=== PATIENT | male | born 1940 | race Caucasian/White ===

== ENCOUNTER → 2016-08-09 | Outpatient (CLI) | payer MEDICARE, OTHER ==
[~2016-08-09] MED LIST: ACETAMINOPHEN325 MG PO; ADVAIR 100-501 EAC1; ALBUTEROL17 GM INH; ALBUTEROL20 ml; BACTRIM DS TABL1 TA1 PO; BENZONATATE; CEPHALEXIN500 M1 PO; COMBIVENT MININEB INH; COMBIVENT RESPIM4 GM; DELTASONE20 MG; DEXAMETHASONE4 M1 PO; FLOVENT DI50 MCG/DIS INH; FOLIC ACID1 MG PO; GUAIFENESIN400 M1; HYDROXYZINE HCL25 M1 PO; LEVAQUIN; LEVAQUIN PO; LEVAQUIN750 MG PO; MEDROL PO; METOPROLOL SUCC25 MG PO; METOPROLOL SUCC50 MG PO; NO MEDICATIONS; OXYCODONE HCL5 M1 PO; ROBAXIN500 MG; TUSSIONEX PENN473 ML PO; VICODIN 5/500 T1 TAB PO; VOLTAREN75 MG PO; XARELTO20 MG PO; ZOFRAN PO
--- NOTE | ~2016-08-09 | CR63 ---
[facility] A Service of [facility] & [facility] RADIOLOGY TEXT RESULTS PATIENT: DARREN MOREL LOCATION: [facility] : 40 UNIT #: [id number] AGE: [address]: Antonina Geiger APRN SEX: M ORDER DR: [id number] [facility] [address] [place], [place] [address] [id number] O MR#: [id number] Acc #: [id number] NAME: DARREN MOREL : 1940 SEX: M STUDY DATE/TIME: 08/09/2016 12:37 UNIT: [facility] ROOM: STUDY DESCRIPTION: CR Chest 2 View Attending Physician: Antonina Geiger A.P.R.N. Referring Physician: Antonina Geiger A.P.R.N. Ordering Physician: Antonina Geiger A.P.R.N. Primary Care Physician: Hernán Vazquez M.D. MEDICAL IMAGING REPORT This report is preliminary unless electronic signature is present EXAM Chest 2 views, 08/09/2016 12:37 hours HISTORY 75-year-old man with shortness of air, cough and congestion, history of right lung cancer for followup. Symptoms are chronic. COMPARISON 08/06/2016 FINDINGS 2 PA views and a lateral view demonstrates stable right chest tube with tip overlying the posterior right fourth rib which is slightly inferior to its position previously. The postop changes on the right are stable. There is an apical pneumothorax which is felt slightly smaller than on the prior exam. Left lung is hyperinflated but clear. IMPRESSION 1. A right chest tube projects slightly more inferiorly than it did previously overlying the inferior aspect of the right posterior fourth rib previously extending to the inferior aspect of the right third rib. The right apical pneumothorax is slightly smaller. 2. Lungs are otherwise clear. STAT * RESULT Dictated by... Cady Nichole M.D. THIS IS AN ELECTRONICALLY VERIFIED REPORT Cady Nichole M.D. at 08/10/2016 9:34 AM KAJAL/aleksandra [facility] A Service of [facility] RADIOLOGY TEXT RESULTS PATIENT: DARREN MOREL [id number] 40 UNIT #: [id number] AGE: [address]: Antonina Geiger APRN SEX: M ORDER DR: TD: 08/09/2016 14:15 JOB #: [id number] MEDICAL IMAGING REPORT Page 1 of 1 COPY
== END | disposition home or self-care (01) ==
LOC: CRAD 12:12
DX: C34.90 Malignant neoplasm of unspecified part of unspecified bronchus or lung (principal); J93.9 Pneumothorax, unspecified
CPT/HCPCS: 71020

== ENCOUNTER → 2016-08-24 | Outpatient (CLI) | payer MEDICARE, OTHER ==
--- NOTE | ~2016-08-24 | CR63 ---
[facility] A Service of [facility] & [facility] RADIOLOGY TEXT RESULTS PATIENT: DARREN MOREL LOCATION: [facility] : 40 UNIT #: [id number] AGE: [address]: Ervin Regalado MD SEX: M ORDER DR: [id number] [facility] [address] [place], [place] [address] [id number] O MR#: [id number] Acc #: [id number] NAME: DARREN MOREL. : 1940 SEX: M STUDY DATE/TIME: 08/24/2016 9:42 UNIT: [facility] ROOM: STUDY DESCRIPTION: CR Chest 2 View Attending Physician: Ervin Regalado M.D. Referring Physician: Ervin Regalado M.D. Ordering Physician: Ervin Regalado M.D. Primary Care Physician: Hernán Vazquez M.D. MEDICAL IMAGING REPORT This report is preliminary unless electronic signature is present EXAM Two-view chest INDICATION Lung mass. Shortness of air, cough, and congestion. FINDINGS PA and lateral views of the chest compared to 08/09/2016. There is postsurgical change in the right hemithorax. The right-sided chest tube has been removed. There is a small hydropneumothorax in the right lung apex. The overall volume of the hydropneumothorax is less than the volume of the pneumothorax seen on the prior radiograph. Slightly less than the volume on the prior radiograph. No new pulmonary opacities. IMPRESSION 1. Small right apical hydropneumothorax is slightly decreased in size compared to the pneumothorax on the 08/09/2016 comparison. 2. Removal of the chest tube in the interval. Dictated by... Tien Smith M.D. THIS IS AN ELECTRONICALLY VERIFIED REPORT Tien Smith M.D. at 08/24/2016 3:43 PM Torsten TD: 08/24/2016 12:29 JOB #: [id number] MEDICAL IMAGING REPORT Page 1 of 1 COPY
== END | disposition home or self-care (01) ==
LOC: CRAD 09:25
DX: R91.8 Other nonspecific abnormal finding of lung field (principal); J94.8 Other specified pleural conditions
CPT/HCPCS: 71020

== ENCOUNTER → 2016-08-30 | Outpatient (CLI) | payer MEDICARE, OTHER ==
--- NOTE | ~2016-08-30 | CR97 ---
[facility] A Service of [facility] & [facility] RADIOLOGY TEXT RESULTS PATIENT: DARREN MOREL LOCATION: [facility] : 40 UNIT #: [id number] AGE: [address]: Ervin Regalado MD SEX: M ORDER DR: [id number] [facility] [address] [place], [place] [address] [id number] O MR#: [id number] Acc #: [id number] NAME: DARREN MOREL. : 1940 SEX: M STUDY DATE/TIME: 08/30/2016 10:22 UNIT: [facility] ROOM: STUDY DESCRIPTION: CR Esophagram Attending Physician: Ervin Regalado M.D. Referring Physician: Ervin Regalado M.D. Ordering Physician: Ervin Regalado M.D. Primary Care Physician: Hernán Vazquez M.D. MEDICAL IMAGING REPORT This report is preliminary unless electronic signature is present EXAM Esophagram INDICATIONS Dysphasia for about a month with weight loss. Recent diagnosis of lung cancer. Difficulty swallowing. FINDINGS The fluoro time is 1.9 minutes. The patient was observed in the upright projection and he was given thin and thick barium swallow. The esophagus appeared normal. A 13 mm barium tablet was administered and it passed quickly into the stomach. Cervical region was evaluated with rapid sequence filming and it was normal. Thin supine images were obtained with thin liquid and they appear normal. There is no hernia. IMPRESSION Normal esophagram. There is no evidence of stricture or hernia. Peristalsis was within normal limits and a barium tablet passed quickly into the stomach. Dictated by... Servando Benavidez M.D. THIS IS AN ELECTRONICALLY VERIFIED REPORT Servando Benavidez M.D. at 08/30/2016 3:23 PM DEBORAH/maria eugenia TD: 08/30/2016 14:51 JOB #: [id number] MEDICAL IMAGING REPORT Page 1 of 1 COPY
== END | disposition home or self-care (01) ==
LOC: CRAD 09:44
DX: R13.10 Dysphagia, unspecified (principal)
CPT/HCPCS: 74220

== ENCOUNTER 2016-10-29 20:28 | Inpatient (IN) | payer MEDICARE, OTHER ==
--- NOTE | ~2016-10-29 | OR ---
Unit #: [id number] #: [id number] Patient: DARREN MOREL [id number] [address] [place], [place] [address] [id number] I MR#: [id number] NAME: DARREN MOREL. ROOM: 570 Date of Procedure: 11/05/2016 Admission Date: 10/29/2016 Surgeon: Sanjeev Conrad M.D. : 1940 Attending Physician: Brennan Lim M.D. Primary Care Physician: Hernán Vazquez M.D. OPERATIVE REPORT PRIMARY CARE PHYSICIAN Hernán Vazquez M.D. PREOPERATIVE DIAGNOSES Gastrointestinal bleed. PROCEDURES PERFORMED Upper gastrointestinal endoscopy and colonoscopy with polypectomy. POSTOPERATIVE DIAGNOSES For upper endoscopy: 1. Completely normal examination up to third part of duodenum. For colonoscopy: 1. A single polyp in the transverse colon. This was about 8 to 9 mm in size and was removed using snare cautery polypectomy. 2. Small to medium-sized internal hemorrhoids. These were not actively bleeding. 3. Rest of the examination was normal up to cecum and terminal ileum. The quality of prep was excellent. RECOMMENDATIONS The patient most likely had hemorrhoidal bleed, which has since resolved. He can be discharged from GI standpoint and can be started on healthy heart diet. The results of polyp histology will be followed up. SEDATION USED MAC. DESCRIPTION OF PROCEDURE Following detailed explanation of the potential risks and complications of an upper endoscopy and a colonoscopy, namely perforation, bleeding, and complications related to sedation, the patient was brought to GI lab and laid in the left lateral decubitus position. Lubricated tip of the Olympus video upper endoscope was passed through bite block into the proximal esophagus under direct vision. The entire esophageal mucosa was examined and appeared normal. Z-line was nicely demarcated, there being no esophagitis or hiatus hernia. The scope was then advanced into the gastric cavity and the latter was insufflated. Mucosa of the fundus, body, and antrum examined and appeared unremarkable. Pylorus was intubated with visualization of the normal duodenal bulb and second and third part of the duodenum. Upon withdrawal and retroflexion, incisura, cardia, and greater curve examined and no additional findings noted. The Unit #: [id number] #: [id number] Patient: DARREN MOREL scope was then withdrawn in the distal esophagus. The entire esophageal mucosa was examined all the way up to pharynx, no additional findings noted. The examination table was then turned by 180 degrees and the patient positioned for a colonoscopy. A digital rectal examination was performed, which was normal. Lubricated tip of the Olympus video colonoscope was inserted through the anus and advanced under direct vision. The scope was advanced and passed up to sigmoid into descending colon. No diverticula were seen in this area. The scope tip was then navigated all the way up to cecum with visualization of ileocecal valve and the appendiceal orifice. Preparation was excellent with good visualization and photodocumentation was obtained. Successive segments of the colonic mucosa were examined upon withdrawal. A single sessile polyp was noted in the transverse colon. This was about 7 or 8 mm in size. It was removed using snare cautery polypectomy. The polyp was retrieved and sent for histology. No additional polyps were noted. The patient did not have any diverticulosis, but did have small to medium-sized internal hemorrhoids seen at the anal verge. These were not actively bleeding. The scope was then withdrawn. The patient returned to the recovery area. He tolerated the procedure without any postprocedure complications. Dictated by... Tanja Carpenter/harrison TD: 11/05/2016 18:48 JOB #: [id number] CC: Tanja Anna M.D. OPERATIVE REPORT Page 1 of 1 X Sanjeev Conrad MD X PROCEDURE OPERATIVE NOTE
--- NOTE | ~2016-10-29 | EKG ---
PATIENT: DARREN MOREL UNIT #: [id number] Ventricular Rate: 144 BPM Atrial Rate: 375 BPM QRS Duration: 64 ms Q-T Interval: 238 ms QTC Calculation(Bezet): 368 ms Calculated R [place]: 51 degrees Calculated T [place]: -65 degrees Diagnosis Line: Atrial fibrillation with rapid ventricular Diagnosis Line: response Diagnosis Line: Nonspecific ST and T wave abnormality Diagnosis Line: Abnormal ECG Diagnosis Line: When compared with ECG of 19-JUN-2016 10:41, Diagnosis Line: Atrial fibrillation has replaced Sinus rhythm Diagnosis Line: Vent. rate has increased BY 70 BPM Diagnosis Line: Non-specific change in ST segment in Inferior Diagnosis Line: leads Diagnosis Line: ST now depressed in Anterior leads Diagnosis Line: Nonspecific T wave abnormality now evident in Diagnosis Line: Inferior leads Diagnosis Line: Nonspecific T wave abnormality now evident in Diagnosis Line: Lateral leads Diagnosis Line: Confirmed by CHRIS DICKSON MD ([id number]) on 10/30/2016 Diagnosis Line: 5:53:30 AM INTERPRETING MD: YESSI SU
--- NOTE | ~2016-10-29 | A ---
[facility] Nutrition Therapy DATE: 10/30/16 Patient: DARREN Lane MARIA TERESA Physician: LUKE Address: [address] [place] [address] Room/Bed: [address], Zip: [place] [phone] Admit Date: 10/29/16 Date of : [birth year] Height: 6 4 Weight: 149 68 NUTRITIONAL ASSESSMENT: REASON: LOW BMI PT IS 75 Y.O. 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 PT SEEN FOR LOW BMI. PT REPORTS DECREASED PO INTAKE 2' DECREASED APPETITE PAST SEVERAL DAYS 2' CONGESTION AND NOT FEELING WELL. PT REPORTS UBW IS ~160-170# BUT UNABLE TO IDENTIFY TIME FRAME OF WEIGHT LOSS. PER Histogen, PT WEIGHED ~161# IN JUN 2016-12#/7% PAST 4 MONTHS. PT NOTES SOME DIFFICULTY SWALLOWING 2' CONGESTION, DENIES ANY CHEWING DIFFICULTIES. THIS RD ENCOURAGED ADEQUATE KCAL, PROTEIN AND FLUID INTAKE, PT AGREED TO ENSURE SHAKES TID W/MEALS. PT DRINKS ENSURE SHAKES AT HOME. PT REPORTED NO DIET QUESTIONS AT THIS TIME. RD TO FOLLOW. SEE RECOMMENDATIONS BELOW. Dx: INADEQUATE PROTEIN-ENERGY INTAKE R/T CURRENT DIAGNOSIS, DECREASED APPETITE AEB LOW BMI OF 18.1, 74%IBW, WEIGHT LOSS NOTED, PT REPORT ABOVE. -INCREASED NUTRIENT NEEDS R/T PMH AEB LOW BMI NOTED 18.1, 74%IBW, WEIGHT LOSS NOTED. Intervention: 1. REGULAR DIET 2. ENSURE SHAKES TID W/MEALS Monitoring, Evaluation and Goals: 1. ORAL INTAKE; CONSUME/TOLERATE >50% OF MEALS AND SUPPLEMENTS 2. WEIGHTS; PROMOTE GRADUAL WEIGHT GAIN TOWARDS HEALTHY BMI; PRESERVE LEAN BODY MASS 3. LABS; WNL MONITOR: -PO INTAKE/APPETITE [facility] Nutrition Therapy DATE: 10/30/16 Patient: DARREN MOREL Physician: LUKE Address: [address] [place] [address] Room/Bed: [facility] [facility], Zip: [place] [address] Admit Date: 10/29/16 Date of : [birth year] Height: 6 4 Weight: 149 68 -WEIGHTS -SUPPLEMENT INTAKE Recommendations: 1. PLEASE ORDER CHOCOLATE ENSURE SHAKES TID W/MEALS 2. CONTINUE TO ENCOURAGE ADEQUATE PO AND SUPPLEMENT INTAKE PT IS UNDERWEIGHT. ENCOURAGE SOFT FOODS 2' PT REPORT ABOVE. IF SWALLOWING DIFFICULTY NOTED, CONSULT AMMONIA BOX OPERATOR 3. CONSIDER ADDING MVI W/MINERAL DAILY TO PT'S CURRENT MEDICATION REGIMEN RD WILL F/U PER PROTOCOL PT IS MILD/MODERATELY COMPROMISED Respectfully, GUERITA AYALA MS, RD, LD Food and Nutritional Services [facility] cc: client file
--- NOTE | ~2016-10-29 | CR72 ---
[facility] A Service of [facility] & [facility] RADIOLOGY TEXT RESULTS PATIENT: DARREN MOREL [address]ATION: [address] : [birth year] UNIT #: [id number] AGE: [address]: Brennan Lim MD SEX: M ORDER DR: [id number] [facility] [address]. [place], [place] [address] [id number] I MR#: [id number] Acc #: [id number] NAME: DARREN MOREL. : 1940 SEX: M STUDY DATE/TIME: 10/29/2016 20:48 UNIT: [facility] ROOM: [facility] STUDY DESCRIPTION: CR Chest Single View Portable Attending Physician: Brennan Lim M.D. Ordering Physician: Caden Flores M.D. Primary Care Physician: Hernán Vazquez M.D. MEDICAL IMAGING REPORT This report is preliminary unless electronic signature is present EXAM Single view of the chest, 10/29/2016 COMPARISON Single view of the chest, 09/12/2016 HISTORY Chest pain, shortness of air today. FINDINGS Single view of the chest was obtained. There is a port catheter in the left upper chest with the tip in the region of the SVC. 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 There is also some linear stable opacity in the right lower to mid lung zone related to the tented diaphragm. It is stable and has chronic appearance. No significant superimposed acute or new abnormality is seen. Dictated by... Vidhi To M.D. THIS IS AN ELECTRONICALLY VERIFIED REPORT Vidhi To M.D. at 10/30/2016 9:02 PM CPR/aleksandra TD: 10/30/2016 10:51 JOB #: [id number] MEDICAL IMAGING REPORT Page 1 of 1 COPY
--- NOTE | ~2016-10-29 | EKG ---
PATIENT: DARREN MOREL UNIT #: [id number] Ventricular Rate: 95 BPM Atrial Rate: 357 BPM QRS Duration: 82 ms Q-T Interval: 344 ms QTC Calculation(Bezet): 432 ms Calculated R [place]: 31 degrees Calculated T [place]: -19 degrees Diagnosis Line: Atrial fibrillation Diagnosis Line: Nonspecific T wave abnormality , probably Diagnosis Line: digitalis effect Diagnosis Line: Abnormal ECG Diagnosis Line: When compared with ECG of 29-OCT-2016 20:40, Diagnosis Line: Vent. rate has decreased BY 49 BPM Diagnosis Line: ST no longer depressed in Anterior leads Diagnosis Line: Confirmed by PETER COLON MD ([id number]) on Diagnosis Line: 10/31/2016 10:52:54 AM INTERPRETING KRISTAN CURTIS
--- NOTE | ~2016-10-29 | CO ---
Unit #: [id number] #: [id number] Patient: DARREN MOREL [id number] [address] [place], [place] [address] [id number] MR#: [id number] NAME: DARREN MOREL. ROOM: [facility] Age: 75 Sex: M Admission Date: 10/29/2016 : 1940 Attending Physician: Brennan Lim M.D. Primary Care Physician: Hernán Vazuqez M.D. CONSULTATION REPORT CHIEF COMPLAINT Non-small cell lung cancer T2 N0 M0 right upper lobe lobectomy, squamous cell, on adjuvant chemotherapy, neutropenic fever. HISTORY OF PRESENT ILLNESS This is a 75-year-old male who started smoking a the age of 15. He had been smoking about two packs per day for 60 years, 120 pack-years. During May 2016, he came to [facility] with atypical chest pain, shortness of breath, diagnosed with non-small cell lung cancer. The patient had right hilar mass. Biopsy was positive for squamous cell carcinoma. He had right upper lobe lobectomy. The final pathology T2 N0 M0. He has been receiving Carbo/Taxol. He has completed his chemotherapy last week. He came to hospital with fever, chills, short of breath. Chest x-ray was normal. However, he has a neutropenia. His blood pressure was low. At present, he is receiving three antibiotics. He is feeling better. Today, CBC shows WBC 0.4, hemoglobin 10.4, MCV 85, platelets 149. Creatinine is 0.6, LFTs are normal. Iron studies pending. Please note that he has atrial fibrillation and tolerating Xarelto. REVIEW OF SYSTEMS CONSTITUTIONAL: Fever, chills. EYES: No visual symptoms. EARS, NOSE AND THROAT: There is no runny nose or sore throat or difficulty hearing. CARDIOVASCULAR: No chest pain. No shortness of breath. No palpitations. No orthopnea. No PND. RESPIRATORY: Shortness of breath. GASTROINTESTINAL: No nausea, vomiting, diarrhea, constipation, hematochezia or melena. GENITOURINARY: No urinary frequency, hesitancy or urgency. No blood in the urine. MUSCULOSKELETAL: No muscle or joint pain. NEUROLOGIC: No headache. No numbness or tingling. No weakness. No seizure. PSYCHIATRIC: No anxiety, depression or mood disturbance. ENDOCRINE: No excessive urination or thirst. DERMATOLOGIC: No rash or change in the skin. Unit #: [id number] #: [id number] Patient: DARREN MOREL ALLERGIC/IMMUNOLOGIC: No symptoms. HEMATOLOGIC/LYMPHATIC: Denies any symptoms. PAST MEDICAL HISTORY 1. Non-small lung cancer, squamous cell T2 N0 M0. 2. Right upper lobe lobectomy, now receiving chemotherapy. 3. Atrial fibrillation. 4. BPH. ALLERGIES None. SOCIAL HISTORY As mentioned above. 120 pack-years smoking. Denies alcohol abuse. Used to work for [employer]. SURGICAL HISTORY 1. 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 2. Right upper lobe lobectomy. 3. Hemorrhoid surgery. No one in the family has cancer. MEDICATIONS Current medications include: 1. Vancomycin. 2. Tobramycin. 3. Merrem. 4. Granix. 5. Xarelto. 6. Digoxin. 7. Combivent. PHYSICAL EXAMINATION VITAL SIGNS: Afebrile. Pulse 92, respiratory rate 18, O2 saturation 96%, blood pressure 92/59. GENERAL: Patient is comfortable. ECOG is 0. The patient is pleasant. HEENT: Moist mucosa. Pupils equally reactive to light. Extraocular muscles intact. Sclerae anicteric. No obvious bleeding from nasal mucosa or oral mucosa. Scalp normal. Hearing normal. NECK: No JVD. No lymphadenopathy. LYMPHATIC/HEMATOLOGIC: There is no palpable adenopathy in the neck, axilla or inguinal area. CARDIOVASCULAR: S1, S2. Regular rate and rhythm. No S3 or S4. RESPIRATORY: Chest symmetrical, normal. Clear to auscultation bilaterally. No wheezes, no rales, no rhonchi. No dullness to percussion. ABDOMEN/GASTROINTESTINAL: Abdomen is soft, nontender, nondistended. No hepatosplenomegaly. EXTREMITIES: There is no clubbing, no cyanosis, no edema. No varicose veins. NEUROLOGICAL: Patient is alert, awake and oriented x3. Cranial nerves II-XII are intact. Sensory grossly intact. Motor is 4/5 in all four extremities. Gait is normal. Station is normal. Language is normal. Memory is normal. DTRs +2 in all four extremities. MUSCULOSKELETAL: No joint swelling. No bony tenderness. No muscle tenderness. SKIN: No petechiae, no rash, no ecchymosis. PSYCHIATRIC: No anxiety. No delusions or hallucinations. There is no Unit #: [id number] #: [id number] Patient: DARREN MOREL. Eye contact is normal. Affect is appropriate. There is no flight of ideas. DIAGNOSTIC STUDIES IMAGING: Chest x-ray normal. LABORATORY: As mentioned above. PATHOLOGY: As mentioned above. ASSESSMENT AND PLAN This is a 75-year-old male with the following active issues: 1. Non-small cell lung cancer: It is squamous cell. He has a right upper lobe lobectomy. It is T2 N0 M0. He has completed four cycles of Carbo/Taxol. He will follow with Dr. Emerald Acevdeo. 2. Neutropenic fever: He had a splenectomy. He is high risk for bacteremia and sepsis. He is receiving three antibiotics. He is receiving Granix. 3. Anemia: Will check iron studies. 4. Anticoagulation: He has atrial fibrillation and he is taking Xarelto. DISCUSSION I had an extensive discussion with patient. I advised him to follow with Dr. Emerald Acevedo once he is discharged from this hospital. Dictated by... Tanja Santana/neda TD: 10/30/2016 11:21 JOB #: [id number] CONSULTATION REPORT Page 1 of 1 X Gamal Acevedo MD CONSULTATION REPORT
--- NOTE | ~2016-10-29 | CO ---
Unit #: [id number] #: [id number] Patient: DARREN MOREL [id number] [address] [address] [id number] I MR#: [id number] NAME: DARREN MOREL. ROOM: [facility] Age: 75 Sex: M Admission Date: 10/29/2016 : 1940 Attending Physician: Brennan Lim M.D. Primary Care Physician: Hernán Vazquez M.D. Consultation Date: 10/30/2016 CONSULTATION REPORT REASON FOR CONSULT ICU management. CHIEF COMPLAINT Shortness of breath and cough. HISTORY OF PRESENT ILLNESS This is a very pleasant 75-year-old male with a history of squamous cell cancer of the lungs, currently undergoing chemotherapy, COPD, A-fib, who presented to the emergency room with shortness of breath. The patient stated that he is currently on chemotherapy and last cycle was a few days ago. He was doing fairly okay until yesterday when he suddenly developed productive cough of yellowish to grayish sputum associated with progressive shortness of breath, lightheadedness and palpitations. Upon presentation to the emergency room, the patient was found to be hypotensive and in A-fib with RVR. The patient was started on Jason-Synephrine and he was resuscitated per sepsis guidelines. He was also given IV digoxin and his rate came back to less than 100%. The patient stated that he is on oxygen as needed at home. PAST MEDICAL HISTORY 1. A-fib. 2. COPD. 3. Squamous cell cancer of the lungs. 4. GERD. PAST SURGICAL HISTORY 1. Port placement. 2. Tonsillectomy. 3. Splenectomy. 4. Hernia repair. 5. Hemorrhoidectomy. ALLERGIES No known drug allergies. HOME MEDICATIONS 1. Advair. 2. Ventolin. 3. Dexamethasone. 4. Digoxin. 5. Zofran. 6. Percocet. Unit #: [id number] #: [id number] Patient: DARREN MOREL 7. Atarax. 8. Lopressor. 9. Xarelto. FAMILY HISTORY No coronary artery disease or lung cancer. REVIEW OF SYSTEMS Shortness of breath, cough, low grade fever and palpitation. Otherwise, twelve point review of systems were obtained and were negative except for what was mentioned in the HPI. PHYSICAL EXAMINATION GENERAL: The patient is currently feeling better. Upon presentation, he was diaphoretic, in respiratory distress. His maximum temperature was 102.4. His heart rate is currently 92, blood pressure is 121/62. HEENT: Atraumatic, normocephalic. PERRLA, EOMI. NECK: Supple. No JVD, no lymphadenopathy. CHEST: Bilateral diffuse rhonchi and scattered wheezing. HEART: S1, S2. No murmur, gallops or rubs. The patient is in irregular rhythm. ABDOMEN: Soft, nontender. Bowel sounds positive. No hepatosplenomegaly. EXTREMITIES: No edema or cyanosis. SKIN: No rashes. [employer] WORKING: Awake, alert, oriented x3. No focal motor/sensory deficit. DIAGNOSTIC STUDIES LABORATORY: Blood gas is unavailable. Creatinine 0.06, sodium 128, chloride 101, white blood cell count 0.6, hemoglobin 11.5, platelets 149. IMAGING: Chest x-ray is concerning for subtle infiltrates. However, retrocardiac pneumonia cannot be ruled out. ASSESSMENT 1. Acute hypoxic respiratory failure. 2. Septic shock. 3. Healthcare associated pneumonia, Gram-negative/methicillin resistant Staph aureus. 4. Neutropenia. 5. Chronic anemia. 6. Squamous cell cancer. 7. Atrial fibrillation with rapid ventricular response. PLAN 1. Will continue to wean patient's IV pressors and will add Midodrine. 2. Will monitor urine output. The patient is status post IV fluid resuscitation per sepsis guidelines. 3. Broad spectrum antibiotics, pending culture. 4. Bronchoscopy, given his immunocompromised status. 5. Bronchodilators, mucolytics and IV steroids. 6. Out of bed to chair and early ambulation. 7. Continue Xarelto but watch for platelet. I would like to thank you for allowing me to be part of this patient's care. Unit #: [id number] #: [id number] Patient: DARREN MOREL Dictated by..Tanja Coombs TD: 10/30/2016 08:42 JOB #: [id number] CONSULTATION REPORT Page 1 of 1 X LIDA JIMENEZ MD CONSULTATION REPORT
--- NOTE | ~2016-10-29 | HP ---
Unit #: [id number] #: [id number] Patient: DARREN MOREL [id number] [address] [place], [place] [address] [id number] I MR#: [id number] NAME: DARREN MOREL. ROOM: [facility] Age: 75 Sex: M Admission Date: 10/29/2016 : 1940 Attending Physician: Courtney Walker M.D. Primary Care Physician: Hernán Vazquez M.D. HISTORY AND PHYSICAL CHIEF COMPLAINT A-fib with RVR, likely occult pneumonia with neutropenia, hypotension. HISTORY This pleasant 75-year-old male with squamous cell CA of the lung, currently undergoing chemotherapy with history of COPD and atrial fibrillation, is admitted for hypotension, A-fib with RVR, and likely occult pneumonia with hypotension and sepsis. The patient's last cycle of chemotherapy was four days ago. He was well until 3:00 this morning when he developed chills, felt feverish with a deep cough productive of yellow sputum associated with shortness of breath, lightheadedness and palpitations. He presented to this emergency department this evening where he was found to be in A-fib with RVR. Chest x-ray was read as no acute disease. He became hypotensive in the ER, was treated with Rocephin, Zithromax, Tylenol, IV fluids, started on Jason-Synephrine drip with improvement, and given IV digoxin. His digoxin level is low. Initial O2 saturation was 81% on room air. The patient uses p.r.n. oxygen at home. He currently is feeling improved, heart rate is 115. PAST MEDICAL HISTORY 1. Atrial fibrillation, anticoagulated. 2. COPD, on p.r.n. oxygen. 3. Squamous cell CA of the lung diagnosed 05/2016, status post resection, currently undergoing chemotherapy. 4. GERD. 5. Tonsillectomy. 6. Splenectomy. 7. Hernia repair. 8. Hemorrhoidectomy. ALLERGIES No known drug allergies. HOME MEDICATIONS 1. Advair 100/50, one puff b.i.d. 2. Ventolin inhaler as needed. 3. Dexamethasone 8 mg b.i.d. before chemo. 4. Digoxin 0.125 mg every 48 hours. 5. Zofran p.r.n. 6. Percocet 5/325, one to two tablets q.4 hours as needed. 7. Atarax 25 mg t.i.d. p.r.n. 8. Lopressor 25 mg q. h.s. Unit #: [id number] #: [id number] Patient: DARREN MOREL 9. Xarelto 20 mg daily. 10. Metoprolol 50 mg in the morning. FAMILY HISTORY Negative for heart or lung disease. SOCIAL HISTORY The patient lives with a friend. He stopped smoking 05/2016, was smoking about a pack and a half before that time, does not drink alcohol. REVIEW OF SYSTEMS Difficult to obtain as patient is quite hard of hearing. PHYSICAL EXAMINATION GENERAL APPEARANCE: Diaphoretic 75-year-old male who currently is in no acute distress. VITAL SIGNS: Temperature 102.4, heart rate currently is 105 but was as high as 144, initial blood pressure 133/80 but blood pressure currently is 67/45, will recheck. O2 saturation currently is 90% on 3 L of oxygen. HEENT: Eyes PERRLA. Extraocular muscles are intact. Pharynx reveals thrush. NECK: Supple without adenopathy or thyromegaly. CHEST: Diminished breath sounds. CARDIAC: Irregular S1 and S2. Tachycardic without murmur. There is a port in the left upper chest. ABDOMEN: Bowel sounds are present. No hepatosplenomegaly, tenderness or masses. EXTREMITIES: Without clubbing, cyanosis or edema. Pedal pulses are present. NEUROLOGIC: The patient is awake, alert, oriented. Cranial nerves are intact. Equal strength throughout but quite weak on exam. DIAGNOSTIC STUDIES LABORATORY: Admission labs - hematocrit is 34.8, white blood count of 0.6 with three neutrophils, 87 lymphocytes, 10 monocytes. Platelet count is 162. INR is 1.3. PTT is 33. SMA-12 - glucose 124, sodium 126, chloride is 92, calcium 8.1, albumin is 3, alkaline phos. 94. Lipase normal. Digoxin level 0.3, lactic acid 1.4. Cardiac markers are negative. IMAGING: Chest x-ray - elevation of the right hemidiaphragm and stable chronic changes noted in the chest. CARDIOVASCULAR: EKG - A-fib, RVR, rate 144. Nonspecific ST wave abnormalities. ASSESSMENT 1. Suspect occult pneumonia in this immunocompromised patient with neutropenia and splenectomy, receiving chemotherapy. 2. Atrial fibrillation with rapid ventricular response and hypotension. 3. Neutropenic fever. 4. Acute on chronic respiratory failure. 5. Chronic obstructive pulmonary disease. 6. Gastroesophageal reflux disease. PLANS Unit #: [id number] #: [id number] Patient: DARREN MOREL 1. Vancomycin and meropenem and tobramycin. 2. IV fluids, pressors increased digoxin level. 3. SCDs for DVT prophylaxis. 4. Pulmonary and oncology consultation. 5. Start Granix. 6. Bronchodilators, mucolytics and steroids. 7. Prognosis is guarded. Critical time spent in evaluating this patient was 35 minutes. Dictated by Courtney Walker M.D. AML/df TD: 10/30/2016 05:33 JOB #: [id number] HISTORY AND PHYSICAL Page 1 of 1 X Courtney Walker MD X HISTORY AND PHYSICAL
--- NOTE | ~2016-10-29 | CO ---
Unit #: [id number] #: [id number] Patient: DARREN HAMLIN [id number] [address] [place], [place] [address] [id number] I MR#: [id number] NAME: DARREN HAMLIN. ROOM: 570 Age: 75 Sex: M Admission Date: 10/29/2016 : 1940 Attending Physician: Brennan Lim M.D. Primary Care Physician: Hernán Vazquez M.D. CONSULTATION REPORT PRIMARY CARE PHYSICIAN Hernán Vazquez M.D. REASON FOR CONSULTATION Gastrointestinal bleed. HISTORY OF PRESENT ILLNESS Mr. Hamlin is a 75-year-old gentleman with a history of squamous cell lung cancer, status post chemotherapy and COPD, who presented with atrial fibrillation, on Xarelto. He apparently had been coughing up productive purulent sputum and was found to be hypotensive and upon admission, was in atrial fibrillation with rapid ventricular rate. After his initial resuscitation, the patient was transferred to the floor and subsequently developed either melena or hematochezia and the history is very unclear in this regard. PAST MEDICAL HISTORY Significant for history of atrial fibrillation, COPD, squamous cell cancer of the lung and GERD. PAST SURGICAL HISTORY Included splenectomy, herniorrhaphy, hemorrhoidectomy, tonsillectomy, placement of an IV port. MEDICATIONS Prior to admission included Xarelto, Lopressor, Atarax, Advair, Ventolin, dexamethasone, digoxin, Zofran, Percocet. ALLERGIES He has no known drug allergies. FAMILY HISTORY None of colon or pancreatic cancer or liver disease. REVIEW OF SYSTEMS Significant for cough and low-grade fever. There is no history of chest pain. No history of headache or seizures. No history of dysuria, hematuria, or pyuria. There is history of cough and expectoration, but no hemoptysis. Lately, the patient has noted some hematochezia and possibly melena. PHYSICAL EXAMINATION GENERAL: He is quite frail and alert and oriented. VITAL SIGNS: Stable with a temperature of 98.2, pulse is 82 per minute, Unit #: [id number] #: [id number] Patient: DARREN HAMLIN respiratory rate is 18, blood pressure 125/75. He weighs 162 pounds, close to his baseline weight. HEENT: He has mild pallor. There being no icterus, lymphadenopathy, or peripheral edema. CARDIOVASCULAR: Reveals normal heart sounds. No murmurs on auscultation. LUNGS: Reveal bilateral diminished symmetric air entry. ABDOMEN: Soft and nontender. Liver and spleen are not palpable. Bowel sounds normal. DIAGNOSTIC STUDIES LABORATORY RESULTS: Shows a hemoglobin of 8.8, baseline hemoglobin was 13 to 14. White count is 36,000 with left shift, and platelet count is 102. INR is 1.3. Serum chemistry shows normal BUN and creatinine, and albumin of 2.2. LFTs otherwise normal. The patient also has low iron and transferrin saturation and low TIBC, suggestive of anemia of multiple etiologies. The patient's stool study for C diff toxin is negative. CLINICAL IMPRESSION The patient is initially presenting with septic shock, now with gastrointestinal bleed, possible anemia of gastrointestinal blood loss as well as presentation with neutropenia. MANAGEMENT PLAN A diagnostic upper endoscopy and colonoscopy will be performed later today after the prep. The pros and cons of procedure, potential risks, complications discussed with the patient and he was reassured. Thank you for asking me to see this pleasant gentleman. I appreciate the consult. Dictated by... Tanja Carpenter/harrison TD: 11/06/2016 01:45 JOB #: [id number] CC: Tanja Kat M.D. CONSULTATION REPORT Page 1 of 1 X Sanjeev Conrad MD CONSULTATION REPORT
[~2016-10-29 20:28] MED LIST changes: -FOLIC ACID1 MG PO; -METOPROLOL SUCC25 MG PO; -METOPROLOL SUCC50 MG PO
[2016-10-29 21:57] LABS: POC - CKMB <1.0 ng/mL (0.0-7.9); POC - TROPONIN <0.05 ng/mL (<=0.05)
[2016-10-29 22:16] LABS: HEMATOCRIT 34.8 % (38.0-50.0); HEMOGLOBIN 11.5 gm/dL (13.0-16.0); LYMPHOCYTE# 0.6 X10e3 (1.0-3.5); LYMPHOCYTE% 91.5 % (17.0-45.0); MEAN CELL VOLUME 84.7 FL (83-96); MEAN CORPUSCULAR HGB CONC 33.1 g/dL (30-36); MEAN PLATELET VOLUME 8.9 FL (6.5-11.5); MONOCYTE% 7.3 % (3.0-12.0); NEUTROPHIL% 1.2 % (40-75); PLATELET COUNT 162 X10e3 (140-420); RED BLOOD COUNT 4.11 X10e (3.90-5.60); RED CELL DISTRIBUTION WIDTH 16.4 % (11.0-15.5); WHITE BLOOD COUNT 0.6 X10e3 (4.0-10.5)
[2016-10-29 22:20] LABS: DIFF IND YES
[2016-10-29 22:23] LABS: INR 1.3; PARTIAL THROMBOPLASTIN TIME 32.9 SECONDS (23.5-31.3)
[2016-10-29 22:25] LABS: PROTHROMBIN TIME (PATIENT) 14.4 SECONDS (10.0-11.7)
[2016-10-29 22:47] LABS: NUCLEATED RED BLOOD CELL 3 /100 (0)
[2016-10-29 22:49] LABS: ANISOCYTOSIS SL; BILIRUBIN, DIRECT 0.4 mg/dL (0.0-0.2); BILIRUBIN,INDIRECT 0.5 mg/dL (0.0-0.9); BILIRUBIN,TOTAL 0.9 mg/dL (0.2-2.0); BUN/CREATININE RATIO 28.57; CALCIUM SERUM 8.1 mg/dL (8.4-10.2); CREATININE SERUM 0.7 mg/dL (0.6-1.4); GLOM FILT RATE Estimated 92.4 mL/min (>60); MAGNESIUM 1.5 mg/dL (1.6-3.0); PHOSPHOROUS 2.6 mg/dL (2.5-4.6); PLATELET ESTIMATE DECREASED (NORMAL); POTASSIUM 4.3 mmol/L (3.5-5.1); PROTEIN TOTAL SERUM 6.3 g/dL (6.0-8.3)
[2016-10-29 22:50] LABS: HOWELL-JOLLY BODIES PRESENT
[2016-10-29 23:37] LABS: POC - CKMB <1.0 ng/mL (0.0-7.9); POC - TROPONIN <0.05 ng/mL (<=0.05)
[2016-10-29] MEDS ORDERED: METOPROLOL SUCC50 MG PO (23:59)
[2016-10-29] MEDS ORDERED: METOPROLOL SUCC25 MG PO (23:59)
[2016-10-30 04:56] LABS: URINE APPEARANCE CLEAR; URINE BILIRUBIN NEG (NEG); URINE BLOOD NEG (NEG); URINE COLOR YELLOW; URINE GLUCOSE NEG (NEG); URINE KETONE NEG (NEG); URINE LEUKOCYTE ESTERASE NEG (NEG); URINE NITRATE NEG (NEG); URINE PROTEIN NEG (NEG); URINE SPECIFIC GRAVITY 1.011 (1.003-1.035); URINE UROBILINOGEN 0.2 MG/DL (NEG)
[2016-10-30 05:11] LABS: EOSINOPHIL% 0.7 % (0.0-7.0); HEMOGLOBIN 10.4 gm/dL (13.0-16.0); LYMPHOCYTE# 0.3 X10e3 (1.0-3.5); LYMPHOCYTE% 81.7 % (17.0-45.0); MEAN CELL VOLUME 85.6 FL (83-96); MEAN CORPUSCULAR HEMOGLOBIN 27.9 PG (28-34); MEAN CORPUSCULAR HGB CONC 32.6 g/dL (30-36); MEAN PLATELET VOLUME 8.6 FL (6.5-11.5); MONOCYTE# 0.1 X10e3 (0-1.0); MONOCYTE% 12.3 % (3.0-12.0); NEUTROPHIL% 5.3 % (40-75); PLATELET COUNT 149 X10e3 (140-420); RED BLOOD COUNT 3.73 X10e (3.90-5.60); RED CELL DISTRIBUTION WIDTH 16.7 % (11.0-15.5); WHITE BLOOD COUNT 0.4 X10e3 (4.0-10.5)
[2016-10-30 05:14] LABS: DIFF IND NO
[2016-10-30 05:44] LABS: ALBUMIN SERUM 2.6 g/dL (3.5-5.0); BILIRUBIN,TOTAL 0.8 mg/dL (0.2-2.0); CALCIUM SERUM 7.6 mg/dL (8.4-10.2); CREATININE SERUM 0.6 mg/dL (0.6-1.4); GLOM FILT RATE Estimated 98.4 mL/min (>60); POTASSIUM 3.9 mmol/L (3.5-5.1); PROTEIN TOTAL SERUM 5.6 g/dL (6.0-8.3); TOBRAMYCIN PEAK EXTEND DOSING 9.5 ug/ml (15.0-26.0)
[2016-10-31 05:32] LABS: HEMATOCRIT 28.3 % (38.0-50.0); HEMOGLOBIN 9.3 gm/dL (13.0-16.0); LYMPHOCYTE# 0.3 X10e3 (1.0-3.5); LYMPHOCYTE% 48.2 % (17.0-45.0); MEAN CORPUSCULAR HEMOGLOBIN 27.8 PG (28-34); MEAN CORPUSCULAR HGB CONC 32.8 g/dL (30-36); MEAN PLATELET VOLUME 8.7 FL (6.5-11.5); MONOCYTE# 0.3 X10e3 (0-1.0); MONOCYTE% 46.4 % (3.0-12.0); NEUTROPHIL% 5.4 % (40-75); PLATELET COUNT 139 X10e3 (140-420); RED BLOOD COUNT 3.33 X10e (3.90-5.60); RED CELL DISTRIBUTION WIDTH 16.7 % (11.0-15.5)
[2016-10-31 05:35] LABS: WHITE BLOOD COUNT 0.7 X10e3 (4.0-10.5)
[2016-10-31 05:36] LABS: DIFF IND YES
[2016-10-31 06:27] LABS: FERRITIN 701 ng/mL (24-336)
[2016-10-31 07:15] LABS: ALBUMIN SERUM 2.2 g/dL (3.5-5.0); CALCIUM SERUM 7.9 mg/dL (8.4-10.2); CREATININE SERUM 0.5 mg/dL (0.6-1.4); POTASSIUM 3.8 mmol/L (3.5-5.1); PROTEIN TOTAL SERUM 4.7 g/dL (6.0-8.3)
[2016-10-31 07:33] LABS: ANISOCYTOSIS SL; HYPOCHROMIA SL; PLATELET ESTIMATE NORMAL (NORMAL); SCHISTOCYTES PRESENT
[2016-10-31 07:34] LABS: TARGET CELLS SL
[2016-10-31 07:47] LABS: BILIRUBIN,TOTAL 0.3 mg/dL (0.2-2.0)
[2016-11-01 04:09] LABS: BASOPHIL% 0.3 % (0-2.5); DIFF IND NO; EOSINOPHIL% 0.1 % (0.0-7.0); HEMATOCRIT 26.6 % (38.0-50.0); HEMOGLOBIN 8.8 gm/dL (13.0-16.0); LYMPHOCYTE# 0.3 X10e3 (1.0-3.5); LYMPHOCYTE% 26.9 % (17.0-45.0); MEAN CELL VOLUME 84.5 FL (83-96); MEAN CORPUSCULAR HGB CONC 33.2 g/dL (30-36); MEAN PLATELET VOLUME 8.6 FL (6.5-11.5); MONOCYTE# 0.8 X10e3 (0-1.0); MONOCYTE% 67.2 % (3.0-12.0); NEUTROPHIL# 0.1 X10e3 (1.5-7.1); NEUTROPHIL% 5.5 % (40-75); PLATELET COUNT 118 X10e3 (140-420); RED BLOOD COUNT 3.15 X10e (3.90-5.60); RED CELL DISTRIBUTION WIDTH 16.5 % (11.0-15.5); WHITE BLOOD COUNT 1.2 X10e3 (4.0-10.5)
[2016-11-01 04:25] LABS: ALBUMIN SERUM 2.2 g/dL (3.5-5.0); BILIRUBIN,TOTAL 0.5 mg/dL (0.2-2.0); BUN/CREATININE RATIO 31.66; CREATININE SERUM 0.6 mg/dL (0.6-1.4); GLOM FILT RATE Estimated 98.4 mL/min (>60); POTASSIUM 3.4 mmol/L (3.5-5.1)
[2016-11-02 04:37] LABS: BASOPHIL% 0.1 % (0-2.5); HEMATOCRIT 27.8 % (38.0-50.0); HEMOGLOBIN 9.2 gm/dL (13.0-16.0); LYMPHOCYTE# 0.6 X10e3 (1.0-3.5); LYMPHOCYTE% 10.5 % (17.0-45.0); MEAN CELL VOLUME 84.2 FL (83-96); MEAN CORPUSCULAR HEMOGLOBIN 27.9 PG (28-34); MEAN CORPUSCULAR HGB CONC 33.2 g/dL (30-36); MEAN PLATELET VOLUME 8.3 FL (6.5-11.5); MONOCYTE# 2.4 X10e3 (0-1.0); MONOCYTE% 38.7 % (3.0-12.0); NEUTROPHIL# 3.1 X10e3 (1.5-7.1); NEUTROPHIL% 50.7 % (40-75); PLATELET COUNT 103 X10e3 (140-420); RED CELL DISTRIBUTION WIDTH 16.5 % (11.0-15.5); WHITE BLOOD COUNT 6.1 X10e3 (4.0-10.5)
[2016-11-02 04:38] LABS: DIFF IND NO
[2016-11-02 04:55] LABS: CALCIUM SERUM 8.3 mg/dL (8.4-10.2); CREATININE SERUM 0.5 mg/dL (0.6-1.4); MAGNESIUM 1.7 mg/dL (1.6-3.0); PHOSPHOROUS 1.2 mg/dL (2.5-4.6); POTASSIUM 3.8 mmol/L (3.5-5.1)
[2016-11-03 06:53] LABS: ALBUMIN SERUM 2.2 g/dL (3.5-5.0); BILIRUBIN,TOTAL 0.3 mg/dL (0.2-2.0); CALCIUM SERUM 8.6 mg/dL (8.4-10.2); CREATININE SERUM 0.6 mg/dL (0.6-1.4); GLOM FILT RATE Estimated 98.4 mL/min (>60); POTASSIUM 3.6 mmol/L (3.5-5.1)
[2016-11-03 10:12] LABS: HEMATOCRIT 31.9 % (38.0-50.0); HEMOGLOBIN 10.3 gm/dL (13.0-16.0); MEAN CELL VOLUME 85.2 FL (83-96); MEAN CORPUSCULAR HEMOGLOBIN 27.5 PG (28-34); MEAN CORPUSCULAR HGB CONC 32.3 g/dL (30-36); MEAN PLATELET VOLUME 7.9 FL (6.5-11.5); RED BLOOD COUNT 3.74 X10e (3.90-5.60); RED CELL DISTRIBUTION WIDTH 17.6 % (11.0-15.5)
[2016-11-03 10:29] LABS: WHITE BLOOD COUNT 33.6 X10e3 (4.0-10.5)
[2016-11-04 05:46] LABS: HEMATOCRIT 30.8 % (38.0-50.0); HEMOGLOBIN 9.9 gm/dL (13.0-16.0); MEAN CELL VOLUME 85.6 FL (83-96); MEAN CORPUSCULAR HEMOGLOBIN 27.7 PG (28-34); MEAN CORPUSCULAR HGB CONC 32.3 g/dL (30-36); MEAN PLATELET VOLUME 7.9 FL (6.5-11.5); RED BLOOD COUNT 3.6 X10e (3.90-5.60); RED CELL DISTRIBUTION WIDTH 16.9 % (11.0-15.5); WHITE BLOOD COUNT 36.6 X10e3 (4.0-10.5)
[2016-11-04 06:22] LABS: CALCIUM SERUM 8.3 mg/dL (8.4-10.2); CREATININE SERUM 0.5 mg/dL (0.6-1.4); POTASSIUM 3.4 mmol/L (3.5-5.1)
[2016-11-05] MEDS ORDERED: LEVAQUIN750 MG PO (18:23)
[2016-11-05] MEDS ORDERED: FOLIC ACID1 MG PO (18:24)
== END 2016-11-05 21:28 | disposition home health service (06) | DRG 871 ==
LOC: CED 20:28 → CEDOF 23:38 → CICCU2 23:38 → CED 23:38 → CEDOF 23:50 → CICCU2 10-30 02:10 → CEDOF 10-30 02:10 → CICCU2 10-30 02:10 → C5C 11-02 23:11
PROVIDERS: Emergency Medicine; Family Medicine; Internal Medicine; Internal Medicine Gastroenterology; Internal Medicine Hematology; Internal Medicine Pulmonary Disease; Psychiatry & Neurology Psychiatry
PROC: 0DBL8ZZ Excision of Transverse Colon, Via Natural or Artificial Opening Endoscopic (ICD-10-PCS; 2016-10-29)
PROC: 0DJ08ZZ Inspection of Upper Intestinal Tract, Via Natural or Artificial Opening Endoscopic (ICD-10-PCS; principal; 2016-11-05 14:41)
PROC: 0DBL8ZX Excision of Transverse Colon, Via Natural or Artificial Opening Endoscopic, Diagnostic (ICD-10-PCS; 2016-11-05 14:41)
DX: A41.9 Sepsis, unspecified organism (principal); R65.21 Severe sepsis with septic shock; J96.21 Acute and chronic respiratory failure with hypoxia; J15.1 Pneumonia due to Pseudomonas; E44.0 Moderate protein-calorie malnutrition; C34.11 Malignant neoplasm of upper lobe, right bronchus or lung; D70.9 Neutropenia, unspecified; J44.9 Chronic obstructive pulmonary disease, unspecified; I48.91 Unspecified atrial fibrillation; D64.9 Anemia, unspecified; F17.210 Nicotine dependence, cigarettes, uncomplicated; Z92.21 Personal history of antineoplastic chemotherapy; Z79.01 Long term (current) use of anticoagulants; K21.9 Gastro-esophageal reflux disease without esophagitis; R50.81 Fever presenting with conditions classified elsewhere; H91.90 Unspecified hearing loss, unspecified ear; N40.0 Benign prostatic hyperplasia without lower urinary tract symptoms; K63.5 Polyp of colon; D12.3 Benign neoplasm of transverse colon; K64.8 Other hemorrhoids; R19.7 Diarrhea, unspecified
CPT/HCPCS: 71010; 80048; 80053; 80076; 80162; 80200; 81003; 82150; 82308; 82550; 82553; 82607; 82728; 82947; 83540; 83550; 83605; 83690; 83735; 84100; 84484; 85025; 85027; 85610; 85730; 87040; 87070; 87077; 87186; 87205; 87493; 88305; 93005; 94640; 94664; 94760; 96365; 96367; 96375; 97110; 97116; 97162; 97166; 97530; 97535; 99291; G8978-GP; G8979-GP; G8987-GO; G8988-GO; J0456; J0696; J1160; J1447; J1642; J1956; J2185; J2370; J2543; J2916; J2920; J2930; J3260; J3370; J3475; J3490

== ENCOUNTER → 2017-01-08 | Outpatient (CLI) | payer MEDICARE, OTHER ==
[~2017-01-08] MED LIST changes: +FOLIC ACID1 MG PO; +METOPROLOL SUCC25 MG PO; +METOPROLOL SUCC50 MG PO
--- NOTE | ~2017-01-08 | CT55 ---
[facility] A Service of [facility] & [facility] RADIOLOGY TEXT RESULTS PATIENT: DARREN MOREL [facility] UN[facility] #: [id number] AGE: [address]: Maikol Acevedo MD SEX: M ORDER DR: [id number] [facility] [address] [place], [place] [address] [id number] O MR#: [id number] Acc #: [id number] NAME: DARREN MOREL : 1940 SEX: M STUDY DATE/TIME: 01/08/2017 1603 UNIT: [facility] ROOM: STUDY DESCRIPTION: CT Chest W Con Attending Physician: Maikol Acevedo M.D., Ph.D. Referring Physician: Maikol Acevedo M.D., Ph.D. Ordering Physician: Maikol Acevedo M.D., Ph.D. Primary Care Physician: Hernán Vazquez M.D. MEDICAL IMAGING REPORT This report is preliminary unless electronic signature is present EXAM CT chest with contrast, 01/08/2017, 1603 hours. CLINICAL HISTORY 76-year-old man with a history of lung carcinoma diagnosed May 2016 with chemotherapy, most recently administered last week. Patient complains of right lung area pain for 3 days. Gassy feeling in abdomen and watery diarrhea for [address] 05/22/2016, CT chest 05/17/2016. TECHNIQUE Dynamic helical CT images were obtained from the thoracic inlet through the adrenal glands. Sagittal and coronal reconstructions were performed. Contrast was Isovue-370 100 mL IV. Total exam DLP 951 mGy-cm for the chest and abdomen CT today. This CT exam was performed with one or more of the following radiation dose reduction techniques: automatic exposure control, adjustment of mA and/or kV according to patient size, and iterative reconstruction. FINDINGS Images through the thoracic inlet demonstrate no thyroid lesion or supraclavicular adenopathy. Images through the chest demonstrate interval right thoracotomy change with resection of the right perihilar mass. There is again demonstrated emphysematous change. There is linear scar in the medial right upper lobe. There is linear scar at the posterolateral right lung base. There is no definite mediastinal or hilar adenopathy. No definite residual tumor. The left lung is clear of acute densities. There are no effusions. [facility]. [facility] A Service of [facility] RADIOLOGY TEXT RESULTS PATIENT: DARREN MOREL LOCATION: [facility] : 40 UNIT #: [id number] AGE: [address]: Maikol Acevedo MD SEX: M ORDER DR: Images through the abdomen demonstrate a normal appearance to the visualized portions of the liver and adrenal glands. There is no upper abdominal adenopathy. Bone window images demonstrate stable degenerative changes in the thoracic spine. There are no new lytic or blastic lesions. IMPRESSION 1. There is post thoracotomy change in the right hemithorax with resection of the medial right perihilar mass. There is underlying emphysematous change and areas of linear scarring in the anteromedial right upper lobe and the posterolateral right lower lobe. There is minimal perihilar ground-glass opacity. There is no definite tumor mass, adenopathy or pleural fluid. 2. Stable degenerative changes in the thoracic spine. No lytic or blastic bone lesions. 3. Limited views through the upper abdomen demonstrate no liver or adrenal lesion. Dictated by... Cady Nichole M.D. THIS IS AN ELECTRONICALLY VERIFIED REPORT Cady Nichole M.D. at 01/10/2017 9:26 AM KAJAL/ham TD: 01/09/2017 23:53 JOB #: [id number] MEDICAL IMAGING REPORT Page 1 of 1 COPY
--- NOTE | ~2017-01-08 | CT5 ---
[facility] A Service of [facility] & [facility] RADIOLOGY TEXT RESULTS PATIENT: DARREN MOREL LOCATION: [facility] : 40 UNIT #: [id number] AGE: [address]: Maikol Acevedo MD SEX: M ORDER DR: [id number] [facility] [address] [place], [place] [address] [id number] O MR#: [id number] Acc #: [id number] NAME: DARREN MOREL : 1940 SEX: M STUDY DATE/TIME: 01/08/2017 14:36 [facility]: STUDY DESCRIPTION: CT Abdomen W Cont Attending Physician: Maikol Acevedo M.D., Ph.D. Referring Physician: Maikol Acevedo M.D., Ph.D. Ordering Physician: Maikol Acevedo M.D., Ph.D. Primary Care Physician: Hernán Vazquez M.D. MEDICAL IMAGING REPORT This report is preliminary unless electronic signature is present EXAM CT abdomen with contrast. HISTORY 76-year-old male with right lung cancer diagnosed in May 2016, just recently received last chemotherapy and radiation therapy. Complains of diarrhea, gassy feeling in abdomen. Pain in right lung area x3 days. COMPARISON Head CT, 05/22/2016,. TECHNIQUE Axial images performed through the abdomen following IV contrast. Multiplanar reconstructed images reviewed. This CT exam was performed with one or more of the following radiation dose reduction techniques: automatic exposure control, adjustment of mA and/or kV according to patient size, and iterative reconstruction. FINDINGS Emphysema with right basilar scarring and a small right pleural effusion. Liver and gallbladder unremarkable. Spleen surgically absent. Pancreas, kidneys, and adrenal glands are unremarkable. Visualized GI tract unremarkable. Mild aortic atherosclerotic changes. Osseous structures remarkable for mild degenerative disc disease, facet arthropathy lower lumbar spine. There is a questionable lucent lesion within the right iliac bone just lateral to the SI joint measuring less than a centimeter. This may represent a pseudolesion and is not highly convincing for a true bone lesion. This appears unchanged from the patient's PET/CT in May 2016 and again is of doubtful clinical significance. IMPRESSION 1. No CT evidence of metastatic disease to the abdomen. [facility] A Service of [facility] & [facility] RADIOLOGY TEXT RESULTS PATIENT: DARREN MOREL LOCATION: [facility] : 40 UNIT #: [id number] AGE: [address]: Maikol Acevedo MD SEX: M ORDER DR: 2. Prior splenectomy. 3. Bibasilar emphysema with right basilar scarring and a small right pleural effusion. Dictated by... Braden Bui M.D. THIS IS AN ELECTRONICALLY VERIFIED REPORT Braden Bui M.D. at 01/10/2017 7:56 AM ERIK/ham TD: 01/10/2017 00:34 JOB #: [id number] MEDICAL IMAGING REPORT Page 1 of 1 COPY
[2017-01-08 18:06] LABS: POC - GFR >60.0 mL/min (>60)
== END | disposition home or self-care (01) ==
LOC: CCAT 01-03 10:00
PROVIDERS: Internal Medicine Hematology & Oncology
DX: C34.11 Malignant neoplasm of upper lobe, right bronchus or lung (principal); J43.9 Emphysema, unspecified; J90 Pleural effusion, not elsewhere classified; J98.4 Other disorders of lung; M47.894 Other spondylosis, thoracic region; Z90.49 Acquired absence of other specified parts of digestive tract; Z98.890 Other specified postprocedural states; Z92.3 Personal history of irradiation; Z92.21 Personal history of antineoplastic chemotherapy
CPT/HCPCS: 71260; 74160; 82565; J1642; Q9967